=== PATIENT | male | born 1985 | race Caucasian/White ===

== ENCOUNTER 2021-10-31 09:11 | Outpatient (CLI) | payer OTHER ==
[2021-10-31 16:01] LABS: SARS-CoV-2 PCR by NAA DETECTED (NotDetected)
== END 2021-10-31 09:12 | disposition home or self-care (01) ==
LOC: CSHER/OP 09:11
PROVIDERS: ATTEND Emergency Medicine
DX: U07.1 COVID-19 (principal)
CPT/HCPCS: U0003; U0005